=== PATIENT | female | born 1975 | race Two or more races ===

== ENCOUNTER → 2017-12-21 | Outpatient (REF) | payer MEDICAID ==
[2017-12-21 20:22] LABS: BASO # 0.1 10^3/uL (0.0-0.2); BASO % 0.7 % (0.0-1.0); EOS # 0.2 10^3/uL (0.0-0.50); EOS % 1.9 % (0.0-3.0); HEMATOCRIT 42.3 % (36.0-47.0); HEMOGLOBIN 14.1 g/dl (12.0-16.0); IMMATURE GRANULOCYTE % 0.2 % (0-0); LYMPH # 2.1 10^3/uL (1.5-4.5); MEAN CORPUSCULAR HEMOGLOBIN 27.9 pg (27.0-33.0); MEAN CORPUSCULAR HGB CONC 33.3 g/dl (32.0-36.5); MEAN CORPUSCULAR VOLUME 83.8 fl (80.0-96.0); MONO # 0.5 10^3/uL (0.0-0.8); MONO % 5.6 % (0.0-5.0); NEUTROPHILS # 5.9 10^3/uL (1.8-7.7); NEUTROPHILS % 67.6 % (36.0-66.0); PLATELET COUNT, AUTOMATED 490 10^3/uL (150-450); RED BLOOD COUNT 5.05 10^6/uL (4.00-5.40); RED CELL DISTRIBUTION WIDTH 12.8 % (11.5-14.5); WHITE BLOOD COUNT 8.7 10^3/uL (4.0-10.0)
[2017-12-21 20:35] LABS: ESTIMATED AVERAGE GLUCOSE 114 MG/DL (60-110); HEMOGLOBIN A1c 5.6 %
[2017-12-21 20:42] LABS: ALBUMIN 4.1 GM/DL (3.2-5.2); ALBUMIN/GLOBULIN RATIO 1.28 (1.00-1.93); ALKALINE PHOSPHATASE 79 U/L (45-117); ALT/SGPT 65 U/L (12-78); ANION GAP 10 MEQ/L (8-16); AST/SGOT 28 U/L (7-37); BILIRUBIN,TOTAL 0.6 MG/DL (0.2-1.0); BLOOD UREA NITROGEN 8 MG/DL (7-18); CALCIUM LEVEL 8.9 MG/DL (8.5-10.1); CARBON DIOXIDE LEVEL 23 MEQ/L (21-32); CHLORIDE LEVEL 109 MEQ/L (98-107); ERYTHROCYTE SEDIMENTATION RATE 6 mm/hr (0-20); GLOMERULAR FILTRATION RATE > 60.0 (>58); GLUCOSE, FASTING 108 MG/DL (70-100); SODIUM LEVEL 142 MEQ/L (136-145); TOTAL PROTEIN 7.3 GM/DL (6.4-8.2)
[2017-12-22 09:20] LABS: RUBELLA IgG QUALITATIVE IMMUNE (IMMUNE)
[2017-12-23 08:06] LABS: RUBEOLA IgG ANTIBODY 80.1 AU/mL (Immune >29.9)
[2017-12-23 08:06] LABS: MUMPS VIRUS IgG ANTIBODY 94.1 AU/mL (Immune >10.9)
== END ==
LOC: M LAB REF 19:43
DX: Z00.01 Encounter for general adult medical examination with abnormal findings (principal); Z68.30 Body mass index [BMI] 30.0-30.9, adult

== ENCOUNTER 2018-03-04 17:39 | Emergency (ER) | payer OTHER, MEDICAID ==
[2018-03-04] MEDS: ASPIRIN 81 MG CHEW TABLET PO (18:00)
[2018-03-04 18:04] LABS: BASO # 0.1 10^3/uL (0.0-0.2); BASO % 0.5 % (0.0-1.0); EOS # 0.3 10^3/uL (0.0-0.50); EOS % 2.9 % (0.0-3.0); HEMATOCRIT 40.1 % (36.0-47.0); HEMOGLOBIN 13.4 g/dl (12.0-15.5); IMMATURE GRANULOCYTE % 0.4 % (0-3.0); LYMPH # 3.8 10^3/uL (1.5-4.5); LYMPH % 33.8 % (24.0-44.0); MEAN CORPUSCULAR HEMOGLOBIN 27.7 pg (27.0-33.0); MEAN CORPUSCULAR HGB CONC 33.4 g/dl (32.0-36.5); MONO # 0.7 10^3/uL (0.0-0.8); MONO % 6.7 % (0.0-5.0); NEUTROPHILS # 6.2 10^3/uL (1.8-7.7); NEUTROPHILS % 55.7 % (36.0-66.0); PLATELET COUNT, AUTOMATED 500 10^3/uL (150-450); RED BLOOD COUNT 4.83 10^6/uL (4.00-5.40); RED CELL DISTRIBUTION WIDTH 12.8 % (11.5-14.5); WHITE BLOOD COUNT 11.1 10^3/uL (4.0-10.0)
[2018-03-04] MEDS: KETOROLAC 30 MG/ML VIAL (J1885) IV (18:07)
[2018-03-04] MEDS: ONDANSETRON 4MG/2ML VIAL (J2405) IV (18:07)
[2018-03-04 18:20] LABS: PARTIAL THROMBOPLASTIN TIME 23.1 SECONDS (26.8-37.9)
[2018-03-04] MEDS: MORPHINE 2 MG/ML 1ML SYRINGE (J2270) IV (18:40)
[2018-03-04 18:46] LABS: ALBUMIN 3.8 GM/DL (3.2-5.2); ALBUMIN/GLOBULIN RATIO 0.95 (1.00-1.93); ALKALINE PHOSPHATASE 77 U/L (45-117); ALT/SGPT 19 U/L (12-78); ANION GAP 10 MEQ/L (8-16); AST/SGOT 18 U/L (7-37); BILIRUBIN,DIRECT < 0.1 MG/DL (0.0-0.2); BILIRUBIN,TOTAL 0.3 MG/DL (0.2-1.0); BLOOD UREA NITROGEN 14 MG/DL (7-18); CALCIUM LEVEL 8.5 MG/DL (8.5-10.1); CARBON DIOXIDE LEVEL 24 MEQ/L (21-32); CHLORIDE LEVEL 107 MEQ/L (98-107); CPK CREATINE PHOSPHOKINASE 67 U/L (26-192); CREATININE FOR GFR 0.89 MG/DL (0.55-1.30); GLOMERULAR FILTRATION RATE > 60.0 (>58); GLUCOSE, FASTING 109 MG/DL (70-100); LIPASE 155 U/L (73-393); POTASSIUM SERUM 3.9 MEQ/L (3.5-5.1); SODIUM LEVEL 141 MEQ/L (136-145); TOTAL PROTEIN 7.8 GM/DL (6.4-8.2); TROPONIN I < 0.02 NG/ML (< 0.10)
[2018-03-04 18:47] LABS: CK-MB VALUE MASS < 1.0 NG/ML (<3.6); MB/CK RELATIVE INDEX 1.49 (< OR =4); NT-PRO BNP 35 PG/ML (<125)
[2018-03-04 18:49] LABS: CONTROL LINE HCG INT CTR LINE PRESENT; HCG, SERUM QUALITATIVE NEGATIVE (NEGATIVE)
[2018-03-04] MEDS ORDERED: ISOVUE-370 76% 100ML VIAL (Q9967) As Ordered (18:55)
[2018-03-04 20:02] LABS: APPEARANCE, URINE HAZY (CLEAR); BACTERIA, URINE AUTO NEGATIVE (NEGATIVE); BILIRUBIN, URINE AUTO NEGATIVE (NEGATIVE); BLOOD, URINE BLOOD 1+ (NEGATIVE); COLOR, URINE YELLOW (YELLOW); GLUCOSE, URINE (UA) AUTO NEGATIVE (NEGATIVE); KETONE, URINE AUTO NEGATIVE (NEGATIVE); LEUKOCYTE ESTERASE, URINE AUTO NEGATIVE (NEGATIVE); MUCUS, URINE SMALL (NEGATIVE); NITRITE, URINE AUTO NEGATIVE (NEGATIVE); PROTEIN, URINE AUTO 1+ mg/dL (NEGATIVE); RBC, URINE AUTO 10 /HPF (0-3); SQUAMOUS EPITHELIAL CELL UR AU 1 /HPF (0-6); UROBILINOGEN, URINE AUTO 0.2 mg/dL (0.0-2.0); WBC, URINE AUTO 1 /HPF (0-3)
[2018-03-04] MEDS: MORPHINE 4 MG/ML 1ML VIAL/SYRINGE (J2270) IV ×2 (20:02→20:29)
[2018-03-04 20:03] LABS: SPECIFIC GRAVITY URINE AUTO >1.060 (1.002-1.035)
[2018-03-04 20:25] LABS: CHLAMYDIA DNA AMPLIFICATION NEGATIVE (NEGATIVE); GC DNA AMPLIFICATION NEGATIVE (NEGATIVE)
[2018-03-04] MEDS: TAMSULOSIN 0.4 MG CAP PO (20:45)
[2018-03-04] MEDS: OXYCODONE/APAP 5MG/325MG(BULK FOR ED) 1 TABLET PO (22:15)
== END 2018-03-04 22:22 | disposition home or self-care (01) ==
LOC: M ED 17:39
DX: N23 Unspecified renal colic (principal); N20.1 Calculus of ureter
CPT/HCPCS: J2270

== ENCOUNTER → 2019-01-05 | Outpatient (REF) | payer OTHER ==
[~2019-01-05] MED LIST: FLOM0.4C39 PO; PERC5TAB12 PO; ZOFR4TAB14 PO
== END ==
LOC: M SFHCLERA 11:51
PROVIDERS: ATTEND Physician Assistant
DX: R50.9 Fever, unspecified (principal)

== ENCOUNTER 2020-04-26 11:28 | Inpatient (IN) | payer OTHER ==
[~2020-04-26] VITALS: Ht 162.6 cm; Wt 93.5 kg
[2020-04-26] MEDS ORDERED: IBUP200C27 PO (11:37)
[2020-04-26] MEDS ORDERED: LEVO0.1T PO (11:37)
[2020-04-26] MEDS ORDERED: NS 1,000 ML IV ONE (12:30)
[2020-04-26 12:31] LABS: BASO # 0.1 10^3/uL (0.0-0.2); BASO % 0.4 % (0.0-1.0); EOS # 0.2 10^3/uL (0.0-0.5); EOS % 0.9 % (0.0-3.0); HEMATOCRIT 40.6 % (36.0-47.0); HEMOGLOBIN 13.4 g/dl (12.0-15.5); LYMPH # 1.3 10^3/uL (1.5-5.0); LYMPH % 6.7 % (24.0-44.0); MEAN CORPUSCULAR HEMOGLOBIN 29.4 pg (27.0-33.0); MONO # 0.6 10^3/uL (0.0-0.8); MONO % 3.3 % (0.0-5.0); NEUTROPHILS % 88.1 % (36.0-66.0); PLATELET COUNT, AUTOMATED 370 10^3/uL (150-450); RED BLOOD COUNT 4.56 10^6/uL (4.00-5.40); WHITE BLOOD COUNT 19.3 10^3/uL (4.0-10.0)
[2020-04-26 12:42] LABS: INR 1.02; PROTHROMBIN TIME 13.1 SECONDS (11.8-14.0)
[2020-04-26 12:43] LABS: PARTIAL THROMBOPLASTIN TIME 22.9 SECONDS (25.0-38.4)
[2020-04-26] MEDS ORDERED: ISOVUE-370 76% 100ML VIAL As Ordered ONE ×3 (12:47→23:54)
[2020-04-26 13:05] LABS: ALBUMIN 3.5 GM/DL (3.2-5.2); ALT/SGPT 21 U/L (12-78); BILIRUBIN,DIRECT 0.1 MG/DL (0.0-0.2); BILIRUBIN,TOTAL 0.5 MG/DL (0.2-1.0); BLOOD UREA NITROGEN 15 MG/DL (7-18); CALCIUM LEVEL 8.7 MG/DL (8.5-10.1); CARBON DIOXIDE LEVEL 25 MEQ/L (21-32); CHLORIDE LEVEL 107 MEQ/L (98-107); CK-MB VALUE MASS < 1.0 NG/ML (<3.6); CPK CREATINE PHOSPHOKINASE 33 U/L (26-192); CREATININE FOR GFR 0.91 MG/DL (0.55-1.30); GLOMERULAR FILTRATION RATE > 60.0 (>58); GLUCOSE, FASTING 141 MG/DL (70-100); LIPASE 77 U/L (73-393); MB/CK RELATIVE INDEX 3.03 (< OR =4); POTASSIUM SERUM 5.3 MEQ/L (3.5-5.1); SODIUM LEVEL 136 MEQ/L (136-145); TOTAL PROTEIN 7.1 GM/DL (6.4-8.2); TROPONIN I < 0.02 NG/ML (< 0.10)
[2020-04-26] MEDS ORDERED: KETOROLAC 30 MG/ML 1ML VIAL IV ONE (13:15)
--- NOTE | 2020-04-26 14:23 | REP ---
CT ABDOMEN AND PELVIS WITH IV CONTRAST: TECHNIQUE: Axial contrast-enhanced images from the lung bases to the pubic symphysis using 100 mL Isovue-370 intravenous contrast material with multiplanar reformations. COMPARISON: 03/04/2018 The visualized lung bases demonstrate no infiltrate. The liver, spleen, adrenals, pancreas, and kidneys are unremarkable. Gallbladder is grossly unremarkable. There is no hydronephrosis. There is no abdominal aortic aneurysm. There is no adenopathy. There is no free air or free fluid. There is no bowel wall thickening. No pelvic mass is seen. There is a dominant follicle in the right ovary 2.1 cm in diameter. Urinary bladder is mildly distended and grossly unremarkable. IMPRESSION: No acute abnormalities detected in the abdomen or pelvis. Electronically Signed by Jack Subramanian MD 04/30/2020 06:34 P
[2020-04-26] MEDS ORDERED: MORPHINE 4 MG/ML 1ML VIAL/SYRINGE (J2270) IV ONE (15:15)
--- NOTE | 2020-04-26 16:00 | REP ---
MRI lumbar spine: 04/26/2020. Indication: Low back pain and leg numbness. Technique: Multiplanar short and long tier sequences of the lumbar spine were performed without IV Gadolinium. Comparison: None. Findings: Vertebral body alignment is within anatomic limits. Disc dessication and endplate degenerative sequelae are present at L4/L5. No worrisome marrow signal is present. The visualized cord is normal. No significant paraspinal soft tissue abnormalities are present. L1/L2, L2/L3 and L3/L4: Normal. L4/L5: Diffuse disc bulge is present. There is a tiny posterior central annular fissure. There is no significant spinal canal or neural foraminal narrowing. L5/S1: Normal. Impression: Degenerative sequelae at L4/L5 without significant spinal canal or neural foraminal narrowing as described. Electronically Signed by He Alberto DO 04/26/2020 03:51 P
--- NOTE | 2020-04-26 16:02 | ECGEPIP ---
[facility] - ED Test Date: 2020-04-26 Pat Name: MARCY SALDIVAR Department: Room: - Gender: Female Senior Clinical Data Analyst: : 1975 Requested By: ANASTASIA Donahue Order Number: [id number] Reading MD: Luis Enrique Lott Measurements Intervals Robertson Rate: 62 P: 55 NM: 125 QRS: 26 QRSD: 98 T: 44 QT: 438 QTc: 448 Interpretive Statements SINUS RHYTHM Nonspecific ST-T wave abnormalities Similar to tracing done 03-04-18 Electronically Signed on 04-26-2020 16:02:12 EDT by Luis Enrique Lott
[2020-04-26] MEDS ORDERED: NS 1,000 ML IV SCH (18:01)
--- NOTE | 2020-04-26 18:23 | HPEPDOC ---
[facility] Medical History & Physical Date of Admission Apr 26, 2020 Date of Service: Apr 26, 2020 Other Provider Unique Diaz Attending Physician: TYLER TEMPLE MD History and Physical TIME OF SERVICE: 7:50 PM CHIEF COMPLAINT: Back pain HISTORY OF PRESENT ILLNESS: This is a 44-year-old female who presented with complaints of 10 out of 10 back pain that occurred this morning at around 9 AM while bending over to clean. At the time she heard had a pop in her back and the pain radiated down to her left; thereafter she had difficulties walking on her own. She denies having similar pain in the past and denies falling. REVIEW OF SYSTEMS: 12 point review of systems negative except as listed in HPI PAST MEDICAL/ SURGICAL HISTORY: Supple facial surgeries after dog bite Nephrolithiasis Cholecystectomy Appendectomy SOCIAL HISTORY: She is a former smoker FAMILY HISTORY: Diabetes Hypertension Cancer ALLERGIES: Please see below. HOME MEDICATIONS: Please see below. PHYSICAL EXAMINATION: Vital Signs Date Time Temp Pulse Resp B/P (MAP) Pulse Ox O2 Delivery O2 Flow Rate FiO2 04/26/20 11:28 97.1 71 20 81/46 (58) 99 Room Air GEN: Obese/ NAD HEENT: NCAT /mucus membranes moist and pink CVS: RRR/NMRG/ radial pedis pulses intact LUNGS: lungs are clear to auscultation bilaterally on room air ABDOMEN: Contour ( obese) / soft & not tender with palpation MSK/EXTREMITIES: ROM intact in all 4 extremities except for left lower extremity where range of motion is limited by pain / negative REN test at the right / declined REN test at the left because of pain NEURO: CN 2-12 are grossly intact / speech is not dysarthric PSYCH: alert and oriented to person place and time/ able to understand and follow all commands LABORATORY DATA: Laboratory Tests 04/26/20 12:22 Immature Granulocyte % (Auto) 0.6, Neutrophils (%) (Auto) 88.1H, Lymphocytes (%) (Auto) 6.7L, Monocytes (%) (Auto) 3.3, Eosinophils (%) (Auto) 0.9, Basophils (%) (Auto) 0.4, Neutrophils # (Auto) 17.0H, Lymphocytes # (Auto) 1.3L, Monocytes # (Auto) 0.6, Eosinophils # (Auto) 0.2, Basophils # (Auto) 0.1, Nucleated Red Blood Cells % (auto) 0.0, Prothrombin Time 13.1, Prothromb Time International Ratio 1.02, Activated Partial Thromboplast Time 22.9L, Anion Gap 4L, Glomerular Filtration Rate > 60.0, Calcium Level 8.7, Total Bilirubin 0.5, Direct Bilirubin 0.1, Aspartate Amino Transf (AST/SGOT) 12, Alanine Aminotransferase (ALT/SGPT) 21, Alkaline Phosphatase 68, Total Creatine Kinase 33, Creatine Kinase MB < 1.0, Creatine Kinase MB Relative Index 3.03, Troponin I < 0.02, Total Protein 7.1, Albumin 3.5, Albumin/Globulin Ratio 1.0L, Lipase 77 04/26/20 12:31: POC Glucose (Misc Panel) 150H, POC Sodium (Misc Panel) 139, POC Potassium (Misc Panel) 5.0, POC Chloride (Misc Panel) 103, POC Total CO2 (Misc Panel) 24.0, POC Blood Urea Nitrogen (Misc Panel 16, POC Ionized Calcium (Misc Panel) 4.7, POC C reatinine (Misc Panel) 0.8, POC Hematocrit (Misc Panel) 40.0 04/26/20 12:35: POC Beta HCG, Quantitative < 5.0 IMAGING: CT abdomen and pelvis "IMPRESSION: No acute abnormalities detected in the abdomen or pelvis." MRI lumbar spine " Impression: Degenerative sequelae at L4/L5 without significant spinal canal or neural foraminal narrowing as described." MICROBIOLOGY: 04/26/20 Blood Culture, Received Pending ASSESSMENT: Ms. Long is a 44 year-old with a history of multiple surgeries was admitted for evaluation of back pain of unclear cause. PLAN: 1. Back pain of unclear cause. Imaging was unremarkable Plan: Admit to medical floor/Toradol for pain control/all precautions 2. Hypotension of unclear cause. Plan: IV fluids/follow-up blood culture and UA 3. Leukocytosis of unclear cause Plan: Monitor vitals / follow up repeat CBC 4. Obesity with BMI of 32.7 complicates care - f/u A1C DVT PROPHYLAXIS: Lovenox DISPOSITION: Likely home after more than 2 midnight's stay LATE ENTRY 1145 #Back pain 2/2 LLE DVT -Per d/w the patient's RN Jocelyne Salgado the patient's left leg appeared red swollen and warm. -We ordered IV clindamycin for possible cellulitis & a LLE US which showed " DVT extending from the common femoral vein to the popliteal vein. Minimal flow demonstrated at the level of the proximal femoral vein and popliteal vein indicating partial recanalization versus incomplete occlusion of the lumen. " -I went to re-evaluate the patient she denied having trauma to her leg, denied having chest pain or dyspnea. Her left leg was slightly darker than her right leg and more swollen up to the thighs. Plan: d/c lovenox & toradol / start Heparin drip/ order CTA to r/o PE / because the patient has a lot of leg pain and swelling and we do not have Vascular or IR coverage tonight I asked to assist me with transferring this patient to another hospital with Vascular or IR for urgent thrombolysis Home Medications Scheduled Ibuprofen (Ibuprofen) 200 Mg Capsule, 800 MG PO Q8H Levonorgestrel-Ethin Estradiol (Levonor-Eth Estrad 0.1-0.02 mg) 1 Each Tablet, 1 TAB PO DAILY Allergies Coded Allergies: No Known Allergies (Unverified , 04/26/20) TYLER TEMPLE MD Apr 26, 2020 18:23
[2020-04-26] MEDS: NS 1,000 ML IV SCH (18:30)
[2020-04-26] MEDS ORDERED: MAALOX 30 ML SUSP *UDC PO PRN (18:30)
[2020-04-26] MEDS ORDERED: MOM 30ML SUSPENSION UDC PO PRN (18:30)
[2020-04-26 19:45] VITALS: BP 131/72
[2020-04-26] MEDS ORDERED: KETOROLAC 30 MG/ML 1ML VIAL IV PRN (20:00)
[2020-04-26] MEDS ORDERED: ENOXAPARIN 40MG/0.4ML SYRINGE (J1650 PER 10MG) SC SCH (21:00)
[2020-04-26] MEDS: LIDOCAINE 5% (LIDODERM) PATCH TD SCH (22:05)
[2020-04-26] MEDS: CLINDAMYCIN 300 MG in IV 1 EA IV SCH (23:04)
--- NOTE | 2020-04-26 23:06 | REPVR ---
PROCEDURE INFORMATION: Exam: US Duplex Left Lower Extremity Veins, Limited Exam date and time: 04/26/2020 10:58 PM Age: 44 years old Clinical indication: Pain; Leg, lower; Left; Additional info: Left leg swelling TECHNIQUE: Imaging protocol: Real-time Duplex ultrasound of the Left Lower Extremity with 2-D hernandez scale, color Doppler flow and spectral waveform analysis with image documentation. Limited exam focused on the left lower extremity veins. COMPARISON: No relevant prior studies available. FINDINGS: Left deep veins: DVT extending from the common femoral vein to the popliteal vein. Minimal flow demonstrated at the level of the proximal femoral vein and popliteal vein indicating partial recanalization versus incomplete occlusion of the lumen. Left superficial veins: Unremarkable. Saphenofemoral junction is patent without thrombus. Soft tissues: Soft tissue edema in the lower leg. IMPRESSION: 1. DVT extending from the common femoral vein to the popliteal vein. 2. Soft tissue edema in the lower leg. Electronically signed by: Chay De On 04/26/2020 23:06:10 PM
[2020-04-26] MEDS ORDERED: HEPARIN SOD (PORCINE) 5000UNITS/ML VIAL (J1644 PER 1000UNITS) IV PRN (23:45)
[2020-04-26] MEDS ORDERED: HEPARIN SOD (PORCINE) 5000UNITS/ML VIAL (J1644 PER 1000UNITS) IV ONE (23:45)
[2020-04-27] VITALS: BP 140/77
[2020-04-27 00:11] LABS: BLOOD UREA NITROGEN 10 MG/DL (7-18); CARBON DIOXIDE LEVEL 24 MEQ/L (21-32); CHLORIDE LEVEL 109 MEQ/L (98-107); GLOMERULAR FILTRATION RATE > 60.0 (>58); GLUCOSE, FASTING 87 MG/DL (70-100); POTASSIUM SERUM 3.8 MEQ/L (3.5-5.1); SODIUM LEVEL 139 MEQ/L (136-145)
--- NOTE | 2020-04-27 00:26 | REPVR ---
PROCEDURE INFORMATION: Exam: CT Angiography Chest With Contrast Exam date and time: 04/26/2020 11:37 PM Age: 44 years old Clinical indication: Pain; Other: Back; Patient HX: Dvt; Additional info: Hypotension dvt in common femoral vein TECHNIQUE: Imaging protocol: Computed tomographic angiography of the chest with intravenous contrast. 3D rendering: MIP and/or 3D reconstructed images were created by the technologist. Radiation optimization: All CT scans at this facility use at least one of these dose optimization techniques: automated exposure control; mA and/or kV adjustment per patient size (includes targeted exams where dose is matched to clinical indication); or iterative reconstruction. Contrast material: ISO; Contrast volume: 75 ml; Contrast route: AC; COMPARISON: CT ANGIO CHEST 03/04/2018 7:01 PM FINDINGS: Pulmonary arteries: The main pulmonary artery measures 24 mm. No pulmonary embolism is identified. Aorta: The ascending thoracic aorta measures 30 mm. Lungs: Minimal bilateral lower lobe dependent atelectasis. Pleural space: Unremarkable. No pneumothorax. No pleural effusion. Heart: Unremarkable. No cardiomegaly. No pericardial effusion. Lymph nodes: Unremarkable. No enlarged lymph nodes. Bones/joints: Unremarkable. No acute fracture. Soft tissues: Unremarkable. IMPRESSION: Negative CTA chest with little change from 03/04/2018. No acute interval pulmonary embolism is identified. Electronically signed by: Justin Tam On 04/27/2020 00:25:51 AM
[2020-04-27] MEDS: HEPARIN DRIP 25,000 UNITS in IV 1 EA IV SCH ×2 (02:05→18:55)
[2020-04-27 04:00] VITALS: BP 122/83
[2020-04-27 05:38] LABS: HEMATOCRIT 34.2 % (36.0-47.0); MEAN CORPUSCULAR HEMOGLOBIN 29.3 pg (27.0-33.0); MEAN CORPUSCULAR HGB CONC 33.3 g/dl (32.0-36.5); MEAN CORPUSCULAR VOLUME 87.9 fl (80.0-96.0); RED BLOOD COUNT 3.89 10^6/uL (4.00-5.40); WHITE BLOOD COUNT 10.9 10^3/uL (4.0-10.0)
[2020-04-27 05:48] LABS: HEMOGLOBIN 11.4 g/dl (12.0-15.5); PLATELET COUNT, AUTOMATED 250 10^3/uL (150-450)
[2020-04-27 06:00] LABS: BLOOD UREA NITROGEN 9 MG/DL (7-18); CALCIUM LEVEL 7.6 MG/DL (8.5-10.1); CARBON DIOXIDE LEVEL 23 MEQ/L (21-32); CHLORIDE LEVEL 109 MEQ/L (98-107); CREATININE FOR GFR 0.56 MG/DL (0.55-1.30); GLOMERULAR FILTRATION RATE > 60.0 (>58); GLUCOSE, FASTING 78 MG/DL (70-100); POTASSIUM SERUM 3.6 MEQ/L (3.5-5.1); SODIUM LEVEL 138 MEQ/L (136-145)
[2020-04-27] MEDS: CLINDAMYCIN 300 MG in IV 1 EA IV SCH (06:04)
[2020-04-27] MEDS: NS 1,000 ML IV SCH ×3 (06:05→23:59)
[2020-04-27] MEDS: ACETAMINOPHEN TAB 650MG DOSE (2X325MG) PO PRN ×2 (07:48→20:42)
[2020-04-27 08:00] VITALS: BP 136/81
[2020-04-27] MEDS: MORPHINE 4 MG/ML 1ML VIAL/SYRINGE (J2270) IV PRN ×2 (09:44→16:32)
[2020-04-27] MEDS: **NOTE PATIENT COMMENT** MISC XX SCH (09:52)
[2020-04-27 12:00] VITALS: BP 124/75
--- NOTE | 2020-04-27 13:21 | IPNPDOC ---
Text Note Date of Service The patient was seen on 04/27/20. NOTE Subjective: -Sever pain in LLE, there is a mention of transfer to OSH for thrombolysis and being on waitlist but not sure to which institution and threshold suggestive of need for thrombolysis. I called Dr. Knapp who took a look at her imaging and recommended continuing anticoagulation with heparin gtt, elevation, pain management and to officially consult her if exam worsens. GEN: Obese/ NAD HEENT: NCAT /mucus membranes moist and pink CVS: RRR, no mrg LUNGS: CTAB ABDOMEN: Obese, normoactive bowel sounds, soft, NTND EXTREMITIES: ROM intact in all 4 extremities however with severe pain in LLE that is swollen and greater in diameter than R, warm otherwise has been ambulating to the bathroom NEURO: CN 2-12 are grossly intact, speech is not dysarthric PSYCH: AOx3 LABORATORY DATA: reviewed IMAGING: CT abdomen and pelvis "IMPRESSION: No acute abnormalities detected in the abdomen or pelvis." MRI lumbar spine " Impression: Degenerative sequelae at L4/L5 without significant spinal canal or neural foraminal narrowing as described." LL E US which showed " DVT extending from the common femoral vein to the popliteal vein. Minimal flow demonstrated at the level of the proximal femoral vein and popliteal vein indicating partial recanalization versus incomplete occlusion of the lumen. " CTA: negative for PE ASSESSMENT: Ms. Long is a 44 year-old with a history of multiple surgeries was admitted for evaluation of back pain now found to have extensive LLE DVT without evidence of a PE. PLAN: LLE DVT in the setting of oral control -heparin gtt for the next 24h and as pain improves and exam is stable, will switch to eliquis tomorrow. -Discussed her clot burden and exam with Dr. Knapp this morning who recommended continued anticoagulation and elevation after reviewing her imaging. She recommended officially consulting her if her exam worsens. Thus far pain is improving. -Elevate -DEBORAH -Likely 2/2 oral contraceptives that she began in the last 1 year. 2. Hypotension of unclear cause. -s/p IV fluids -was started on empiric clinda, discontinue without evidence of acute infection with CTA without GGOs or effusions or any evidence suggestive of PNA, bland UA, BCx NGTD, afebrile -monitor daily CBC -follow up BCx 3. Leukocytosis likely reactive to DVT -monitor 4. Obesity with BMI of 32.7 complicates care - f/u A1C DVT PROPHYLAXIS: on heparin gtt DISPOSITION: PCU VS,Nelsone, I+O VS, Fishbone, I+O Laboratory Tests 04/26/20 12:22 04/26/20 23:29 04/27/20 05:08 Vital Signs Date Time Temp Pulse Resp B/P (MAP) Pulse Ox O2 Delivery O2 Flow Rate FiO2 04/27/20 04:00 97.9 72 16 122/83 (96) 100 Room Air I&O- Last 24 Hours up to 6 AM 04/27/20 06:00 Intake Total 1750 ml Output Total 300 ml Balance 1450 ml PRIMITIVO CARDENAS MD Apr 27, 2020 09:20
[2020-04-27 16:00] VITALS: BP 130/75
[2020-04-27 20:00] VITALS: BP 127/76
[2020-04-27] MEDS: LIDOCAINE 5% (LIDODERM) PATCH TD SCH (20:42)
[2020-04-28] VITALS: BP 121/65
[2020-04-28 04:00] VITALS: BP 117/67
[2020-04-28 07:44] VITALS: BP 128/76
[2020-04-28] MEDS: **NOTE PATIENT COMMENT** MISC XX SCH (08:47)
[2020-04-28] MEDS: MORPHINE 4 MG/ML 1ML VIAL/SYRINGE (J2270) IV PRN ×2 (09:14)
[2020-04-28] MEDS: NS 1,000 ML IV SCH (10:06)
[2020-04-28] MEDS: APIXABAN 5 MG TAB (ELIQUIS) PO SCH ×2 (11:06→20:55)
--- NOTE | 2020-04-28 11:37 | IPNPDOC ---
Text Note Date of Service The patient was seen on 04/28/20. NOTE Subjective: -Pain much improved this AM GEN: Obese/ NAD HEENT: NCAT /mucus membranes moist and pink CVS: RRR, no mrg LUNGS: CTAB ABDOMEN: Obese, normoactive bowel sounds, soft, NTND EXTREMITIES: ROM intact in all 4 extremities, LLE that is swollen and greater in diameter than R, warm otherwise ans has been ambulating NEURO: CN 2-12 are grossly intact, speech is not dysarthric PSYCH: AOx3 LABORATORY DATA: reviewed IMAGING: CT abdomen and pelvis "IMPRESSION: No acute abnormalities detected in the abdomen or pelvis." MRI lumbar spine " Impression: Degenerative sequelae at L4/L5 without significant spinal canal or neural foraminal narrowing as described." LL E US which showed " DVT extending from the common femoral vein to the popliteal vein. Minimal flow demonstrated at the level of the proximal femoral vein and popliteal vein indicating partial recanalization versus incomplete occl usion of the lumen. " CTA: negative for PE ASSESSMENT: Ms. Long is a 44 year-old with a history of multiple surgeries was admitted for evaluation of back pain now found to have extensive LLE DVT without evidence of a PE. PLAN: LLE DVT in the setting of oral control -switch to eliquis 10 BID for 7d, then 5 BID for at least 3m -Discussed her clot burden and exam with Dr. Knapp 6 AM who recommended continued anticoagulation and elevation after reviewing her imaging. She recommended officially consulting her if her exam worsens. Thus far pain continues to improve -Elevate leg -DEBORAH -Likely 2/2 oral contraceptives that she began in the last 1 year. Stop OCPs -Switch pain meds from morphine IV PRN to percocet 1Q4P 2. Hypotension of unclear cause. -s/p IV fluids -was started on empiric clinda, discontinued 04/27 AM without evidence of acute infection with CTA without GGOs or effusions or any evidence suggestive of PNA, bland UA, BCx NGTD, afebrile -monitor daily CBC -follow up BCx 3. Leukocytosis likely reactive to DVT: resolved -monitor 4. Obesity with BMI of 32.7 complicates care DVT PROPHYLAXIS: eliquis DISPOSITION: PCU downgrade to medsurg VS,Fishbone, I+O VS, Fishbone, I+O Vital Signs Date Time Temp Pulse Resp B/P (MAP) Pulse Ox O2 Delivery O2 Flow Rate FiO2 04/28/20 09:14 18 Room Air 04/28/20 07:44 97.8 81 128/76 (93) 98 I&O- Last 24 Hours up to 6 AM 04/28/20 05:59 Intake Total 1940 ml Output Total 1600 ml Balance 340 ml PRIMITIVO CARDENAS MD Apr 28, 2020 09:59
[2020-04-28] MEDS ORDERED: SLF 3 ML SYR IV PRN (12:00)
[2020-04-28] MEDS: SLF 3 ML SYR IV SCH ×2 (14:00→20:56)
[2020-04-28 15:56] VITALS: BP 140/76
[2020-04-28] MEDS: PERCOCET 5MG/325MG TAB PO PRN ×2 (16:05→20:56)
[2020-04-28 20:00] VITALS: BP 136/74
[2020-04-28] MEDS: LIDOCAINE 5% (LIDODERM) PATCH TD SCH (20:55)
[2020-04-29] VITALS: BP 121/73
[2020-04-29] MEDS: ACETAMINOPHEN TAB 650MG DOSE (2X325MG) PO PRN ×2 (00:08→08:17)
[2020-04-29] MEDS: PERCOCET 5MG/325MG TAB PO PRN ×4 (00:53→14:27)
[2020-04-29 04:00] VITALS: BP 126/76
[2020-04-29] MEDS: SLF 3 ML SYR IV SCH ×2 (05:14→13:37)
[2020-04-29 08:00] VITALS: BP 121/69
[2020-04-29] MEDS: APIXABAN 5 MG TAB (ELIQUIS) PO SCH (08:17)
[2020-04-29] MEDS: **NOTE PATIENT COMMENT** MISC XX SCH (09:00)
[2020-04-29] MEDS ORDERED: SENNA 8.6 MG TAB (SENOKOT) PO SCH (09:00)
[2020-04-29] MEDS ORDERED: ELIQ5TAB PO (09:14)
[2020-04-29] MEDS ORDERED: PERCOCET PO (09:14)
[2020-04-29] MEDS ORDERED: SENN-52 PO (09:16)
[2020-04-29 09:30] LABS: BLOOD UREA NITROGEN 5 MG/DL (7-18); CALCIUM LEVEL 8.1 MG/DL (8.5-10.1); CARBON DIOXIDE LEVEL 25 MEQ/L (21-32); CHLORIDE LEVEL 111 MEQ/L (98-107); GLOMERULAR FILTRATION RATE > 60.0 (>58); GLUCOSE, FASTING 86 MG/DL (70-100); SODIUM LEVEL 143 MEQ/L (136-145)
[2020-04-29 09:31] LABS: HEMATOCRIT 37.8 % (36.0-47.0); HEMOGLOBIN 12.3 g/dl (12.0-15.5); MEAN CORPUSCULAR HEMOGLOBIN 28.9 pg (27.0-33.0); MEAN CORPUSCULAR HGB CONC 32.5 g/dl (32.0-36.5); MEAN CORPUSCULAR VOLUME 88.9 fl (80.0-96.0); PLATELET COUNT, AUTOMATED 318 10^3/uL (150-450); RED BLOOD COUNT 4.25 10^6/uL (4.00-5.40); WHITE BLOOD COUNT 11.3 10^3/uL (4.0-10.0)
[2020-04-29 12:00] VITALS: BP 127/68
--- NOTE | 2020-04-29 16:05 | DS.PDOC ---
Discharge Summary General Date of Admission Apr 26, 2020 at 18:20 Date of Discharge 04/29/2020 Attending Physician: PRIMITIVO CARDENAS MD Discharge Summary PROCEDURES PERFORMED DURING STAY: None. ADMITTING DIAGNOSES: 1. back pain DISCHARGE DIAGNOSES: 1. LLE DVT 2. History of Nephrolithiasis, Cholecystectomy and Appendectomy with otherwise no other chronic conditions COMPLICATIONS/CHIEF COMPLAINT: Back Pain. HISTORY OF PRESENT ILLNESS: 44-year-old W who presented with complaints of 10 out of 10 back pain that began on the morning of presentation while bending over to clean. At the time she heard had a pop in her back and the pain radiated down to her left; thereafter she had difficulties walking on her own. She denies having similar pain in the past and denies falling. HOSPITAL COURSE: In the ED, on initial evaluation she had a CT A/P that was grossly unremarkable, an MRI of her L spine that was grossly without acute pathology with degenerative sequelae at L4/L5 without significant spinal canal or neural foraminal narrowing, and was given empiric antibiotics for a leukocytosis to 19.3. While she was in the ED, she developed LLE pain and had noted swelling and was found to have extensive LLE DVT on LE doppler US without evidence of a PE on CTA. She was started on a heparin gtt and on finally speaking with Dr. Knapp (vascular surgery), who examined her imaging and clot burden, she recommended continuation of anticoagulation without jayce evidence for thrombectomy or IVC filter. We both suspected that this was likely precipitated by the OCPs she started taking within the last 1 year. She was transitioned to eliquis and will be discharge home on eliquis with close PCP follow up for hypercoagulable workup after 6 weeks when it is of highest yield instead of in the setting of an acute thombotic event. She was evaluated by PT and deemed safe for home discharge with a rollator walker until her LLE swelling and pain improve with return to normal gait. DISCHARGE MEDICATIONS: Please see below. ALLERGIES: Please see below. PHYSICAL EXAMINATION ON DISCHARGE: VITAL SIGNS: Please see below. GEN: Obese, NAD HEENT: NCAT /mucus membranes moist and pink CVS: RRR, no mrg LUNGS: CTAB ABDOMEN: Obese, normoactive bowel sounds, soft, NTND EXTREMITIES: ROM intact in all 4 extremities, LLE remains swollen and greater in diameter than R, however with some mild improvement, skin is not tight any longer, 2+ DP pulses, warm otherwise, ambulating cautiously using a walker. NEURO: CN 2-12 are grossly intact, speech is not dysarthric PSYCH: AOx3 LABORATORY DATA: Please see below. IMAGING: CT abdomen and pelvis "IMPRESSION: No acute abnormalities detected in the abdomen or pelvis." MRI lumbar spine " Impression: Degenerative sequelae at L4/L5 without significant spinal canal or neural foraminal narrowing as described." L-spine MRI: Degenerative sequelae at L4/L5 without significant spinal canal or neural foraminal narrowing as described. LE doppler US: 1. DVT extending from the common femoral vein to the popliteal vein. 2. Soft tissue edema in the lower leg. CTA chest: Pulmonary arteries: The main pulmonary artery measures 24 mm. No pulmonary embolism is identified. Aorta: The ascending thoracic aorta measures 30 mm. Lungs: Minimal bilateral lower lobe dependent atelectasis. Pleural space: Unremarkable. No pneumothorax. No pleural effusion. Heart: Unremarkable. No cardiomegaly. No pericardial effusion. Lymph nodes: Unremarkable. No enlarged lymph nodes. Bones/joints: Unremarkable. No acute fracture. Soft tissues: Unremarkable. IMPRESSION: Negative CTA chest with little change from 03/04/2018. No acute interval pulmonary embolism is identified. PROGNOSIS: Good ACTIVITY: As tolerated DIET: regular DISCHARGE PLAN: Home with eliquis, close PCP follow up, rollator walker until gait orthodox and swelling improves, letter for 7d off work. DISPOSITION: Home DISCHARGE INSTRUCTIONS: 1. Home with eliquis, close PCP follow up, rollator walker until gait orthodox and swelling improves, letter for 7d off work. Eliquis 10 BID for 5d and then 5BID thereafter. Stop oral contraception pills. ITEMS TO FOLLOWUP ON ON OUTPATIENT: 1. DVT DISCHARGE CONDITION: Stable TIME SPENT ON DISCHARGE: 34 minutes. Vital Signs/I&Os Vital Signs Date Time Temp Pulse Resp B/P (MAP) Pulse Ox O2 Delivery O2 Flow Rate FiO2 04/29/20 12:00 98.3 72 17 127/68 (87) 98 Room Air I&O- Last 24 Hours up to 6 AM 04/29/20 06:00 Intake Total 528 ml Output Total 2550 ml Balance -2022 ml Laboratory Data Labs 24H Laboratory Tests 2 04/29/20 05:50: Nucleated Red Blood Cells % (auto) 0.0, Anion Gap 7L, Glomerular Filtration Rate > 60.0, Calcium Level 8.1L 04/29/20 05:53: Activated Partial Thromboplast Time 28.5 CBC/BMP Laboratory Tests 04/29/20 05:50 Microbiology Microbiology 04/26/20 Blood Culture - Preliminary, Resulted No Growth after 48 hours. All Specime... 04/26/20 Blood Culture - Preliminary, Resulted No Growth after 48 hours. All Specime... Discharge Medications Scheduled Apixaban (Eliquis) 5 Mg Tablet, 10 MG PO BID 10mg twice daily for 6 more days. Then begin 5mg twice daily Ibuprofen (Ibuprofen) 200 Mg Capsule, 800 MG PO Q8H, (Reported) Sennosides/Docusate Sodium (Senna Plus Tablet) 1 Each Tablet, 1 TAB PO BID Scheduled PRN Oxycodone/Acetaminophen (Oxycodone-Acetaminophen 5-325) 1 Each Tablet, 1 TAB PO Q4HP PRN for MILD/MODERATE PAIN (PS 1-7) Allergies Coded Allergies: No Known Allergies (Unverified , 04/26/20) PRIMITIVO CARDENAS MD Apr 29, 2020 14:18
== END 2020-04-29 15:10 | disposition home or self-care (01) | DRG 197 ==
LOC: M ED 11:28 → M ED INP 18:20 → ENRESERV 18:40 → M PCU 19:42
PROVIDERS: ADMIT Internal Medicine; ATTEND Internal Medicine
DX: I82.412 Acute embolism and thrombosis of left femoral vein (principal); I82.432 Acute embolism and thrombosis of left popliteal vein; I95.9 Hypotension, unspecified; D72.829 Elevated white blood cell count, unspecified; E66.9 Obesity, unspecified; Z68.32 Body mass index [BMI] 32.0-32.9, adult; Z87.891 Personal history of nicotine dependence; Z79.899 Other long term (current) drug therapy

== ENCOUNTER → 2020-07-15 | Outpatient (CLI) | payer OTHER ==
[~2020-07-15] MED LIST changes: +ELIQ5TAB PO; +IBUP200C27 PO; +LEVO0.1T PO; +PERCOCET PO; +SENN-52 PO
--- NOTE | 2020-08-12 09:48 | REP ---
BILATERAL LOWER EXTREMITY DOPPLER ULTRASOUND: CLINICAL: Venous insufficiency with history of deep venous thrombosis. TECHNIQUE: Real time, hernandez scale and color evaluation using linear high frequency transducer. COMPARISON: 04/26/20 FINDINGS: The right lower extremity is normal and without evidence for deep venous thrombosis. The left lower extremity now demonstrates chronic partial thrombus from the common femoral vein to the popliteal vein with decreased compressibility but good color flow. Findings are improved when compared to prior examination. IMPRESSION: Partial resolution to the previously noted left common femoral to popliteal vein thrombus. MTDD
== END ==
LOC: M RAD 13:46
PROVIDERS: ATTEND Physician Assistant
DX: I87.2 Venous insufficiency (chronic) (peripheral) (principal); I82.512 Chronic embolism and thrombosis of left femoral vein; I82.532 Chronic embolism and thrombosis of left popliteal vein

== ENCOUNTER → 2020-08-06 | Outpatient (CLI) | payer OTHER ==
[2020-08-06 12:41] LABS: PTT LUPUS TYPE ANTICOAG SCREEN 0.9 (0-1.2)
[2020-08-09 12:08] LABS: ANTI THROMBIN 3 ANTIGEN IMMUNO 97 % (72-124); PROTEIN C FUNCTIONAL ACTIVITY 132 % (73-180); PROTEIN S FUNCTIONAL ACTIVITY 71 % (63-140)
[2020-08-12 18:10] LABS: ANTINUCLEAR ANTIBODIES DIRECT Negative (Negative)
== END ==
LOC: M LAB 10:42
PROVIDERS: ATTEND Physician Assistant
DX: I87.2 Venous insufficiency (chronic) (peripheral) (principal); Z86.718 Personal history of other venous thrombosis and embolism

== ENCOUNTER → 2020-11-11 | Outpatient (CLI) | payer OTHER ==
[~2020-11-11] MED LIST changes: +CYCL-707 PO; +DOXY-350 PO; +ISOVUE-370 76% 100ML VIAL As Ordered ONE; +NEUR300C PO
--- NOTE | 2020-11-12 08:09 | REP ---
INDICATION: DVT/PE COMPARISON: 04/27/2020 TECHNIQUE: Axial contrast enhanced images from the thoracic inlet to the upper abdomen using pulmonary embolus technique with multiplanar re-formations. 75 ml Isovue 370 intravenous contrast material administered without complication. This CT examination was performed using the following dose reduction techniques: Automated exposure control, adjustment of mA and/or kv according to the patient's size, and use of iterative reconstruction technique. FINDINGS: Satisfactory enhancement of the pulmonary vasculature is achieved and no filling defects are identified to suggest pulmonary embolus. Further evaluation of the mediastinum demonstrates normal thoracic aorta, heart and pericardium. The bilateral lung patrick are well aerated and clear without consolidation pleural effusion or pneumothorax. Tracheobronchial tree is patent. No nodule or mass lesion is identified. No adenopathy noted. Surrounding musculoskeletal structures intact IMPRESSION: No evidence for pulmonary embolus. No acute mediastinal or pleural parenchymal process. <Electronically signed by Tao Kaiser > 11/12/20 0224
== END ==
LOC: M RAD 17:51
PROVIDERS: ATTEND Internal Medicine Hematology & Oncology
DX: R07.9 Chest pain, unspecified (principal); Z86.718 Personal history of other venous thrombosis and embolism
CPT/HCPCS: 71275; Q9967

== ENCOUNTER → 2020-11-20 | Outpatient (CLI) | payer OTHER ==
[~2020-11-20] MED LIST changes: +DOXY100T27 PO; -ISOVUE-370 76% 100ML VIAL As Ordered ONE
--- NOTE | 2020-11-20 08:47 | REP ---
INDICATION: LEFT LEG DVT? PAIN COMPARISON: None. TECHNIQUE: Subramanian scale and color Doppler evaluation left lower extremity using linear high frequency transducer. FINDINGS: Ultrasound examination of the left lower extremity deep venous structures from the common femoral vein to the popliteal vein demonstrates normal compressibility flow and wave patterns in response to respiration and augmentation. There is no evidence for deep venous thrombosis. IMPRESSION: No evidence for deep venous thrombosis. <Electronically signed by Tao Kaiser > 11/20/20 0897
== END ==
LOC: M RAD 07:34
PROVIDERS: ATTEND Internal Medicine Hematology & Oncology
DX: M79.605 Pain in left leg (principal)

== ENCOUNTER → 2021-04-02 | Outpatient (CLI) | payer OTHER ==
[2021-04-02 13:03] LABS: PLATELET COUNT, AUTOMATED 387 10^3/uL (150-450); URINE PREG TEST NEGATIVE (NEGATIVE)
[2021-04-02 13:13] LABS: INR 0.95; PARTIAL THROMBOPLASTIN TIME 28.1 SECONDS (24.2-38.5); PROTHROMBIN TIME 12.9 SECONDS (12.5-14.3)
== END ==
LOC: M PLALAB 10:07
PROVIDERS: ATTEND Physical Medicine & Rehabilitation
DX: M51.36 Other intervertebral disc degeneration, lumbar region (principal)

== ENCOUNTER → 2021-07-07 | Outpatient (CLI) | payer OTHER ==
--- NOTE | 2021-07-08 10:30 | REPVR ---
PROCEDURE INFORMATION: Exam: MR Lumbar Spine Without Contrast Exam date and time: 07/07/2021 3:50 PM Age: 45 years old Clinical indication: Low back pain; Disc degeneration TECHNIQUE: Imaging protocol: Multiplanar magnetic resonance images of the lumbar spine without intravenous contrast. COMPARISON: MRI-Spine, L.S. without con 04/26/2020 2:29 PM FINDINGS: Vertebrae: Unremarkable. Spinal cord: Normal signal. No cord compression. L1-L2: No significant disc disease. No significant spinal canal stenosis. No neural foraminal stenosis. L2-L3: No significant disc disease. No significant spinal canal stenosis. No neural foraminal stenosis. L3-L4: No significant disc disease. No significant spinal canal stenosis. No neural foraminal stenosis. L4-L5: There is disc space narrowing and desiccation. There are moderate degenerative end plate changes at this level. Disc bulging extends into both neural foramen causing mild bilateral neural foraminal narrowing, right worse than left. There is a posterior annular tear. There is facet arthropathy and ligamentum flavum hypertrophy. There is mild spinal canal stenosis. L5-S1: There is mild disc bulging. Disc bulging extends into both neural foramen causing mild bilateral neural foraminal narrowing. Soft tissues: Unremarkable. Reproductive: There is a 3.5 cm complex left adnexal cyst. IMPRESSION: 1. Moderate degenerative disc changes at L4/5, similar to prior study. Please see details above. 2. There is a 3.5 cm complex left adnexal cyst. Followup pelvic ultrasound is recommended. Electronically signed by: Damaso Salmeron On 07/08/2021 10:30:07 AM
== END ==
LOC: M PLAIMG 15:05
PROVIDERS: ATTEND Physician Assistant
DX: M51.36 Other intervertebral disc degeneration, lumbar region (principal); M51.27 Other intervertebral disc displacement, lumbosacral region; M51.26 Other intervertebral disc displacement, lumbar region

== ENCOUNTER → 2021-09-23 | Outpatient (CLI) | payer OTHER ==
[~2021-09-23] MED LIST changes: +PROHANCE 279.3MG/ML 15ML VIAL As Ordered ONE; +PROHANCE 279.3MG/ML 5ML VIAL As Ordered ONE
[2021-09-23 10:34] LABS: BASO # 0.1 10^3/uL (0.0-0.2); BASO % 0.7 % (0.0-1.0); EOS # 0.2 10^3/uL (0.0-0.5); EOS % 1.5 % (0.0-3.0); HEMATOCRIT 41.4 % (36.0-47.0); HEMOGLOBIN 13.6 g/dl (12.0-15.5); LYMPH # 1.6 10^3/uL (1.5-5.0); LYMPH % 13.3 % (24.0-44.0); MEAN CORPUSCULAR HEMOGLOBIN 28.7 pg (27.0-33.0); MEAN CORPUSCULAR HGB CONC 32.9 g/dl (32.0-36.5); MEAN CORPUSCULAR VOLUME 87.3 fl (80.0-96.0); MONO # 0.8 10^3/uL (0.0-0.8); NEUTROPHILS # 9.1 10^3/uL (1.5-8.5); NEUTROPHILS % 77.2 % (36.0-66.0); PLATELET COUNT, AUTOMATED 432 10^3/uL (150-450); RED BLOOD COUNT 4.74 10^6/uL (4.00-5.40); WHITE BLOOD COUNT 11.9 10^3/uL (4.0-10.0)
[2021-09-23 11:38] LABS: ERYTHROCYTE SEDIMENTATION RATE 18 mm/hr (0-20)
[2021-09-23 13:35] LABS: RHEUMATOID FACTOR QUANT < 10.0 IU/ML (<15.0)
--- NOTE | 2021-09-23 13:48 | REPVR ---
PROCEDURE INFORMATION: Exam: MR Lumbar Spine Without and With Contrast Exam date and time: 09/23/2021 11:16 AM Age: 46 years old Clinical indication: Low back pain; Additional info: Disc degener comp to 07/07/21 R/O internal deran-labs first TECHNIQUE: Imaging protocol: Multiplanar magnetic resonance images of the lumbar spine without and with intravenous contrast. Contrast material: PROHANCE; Contrast volume: 18 ml; Contrast route: INTRAVENOUS (IV); COMPARISON: MRI-Spine, L.S. without con 07/07/2021 3:19 PM FINDINGS: Vertebrae: There is no fracture or listhesis. Aside from endplate changes at L4, marrow signal is within normal limits. Spinal cord: Normal signal. No cord compression. L1-L2: No significant disc disease. No significant spinal canal stenosis. No neural foraminal stenosis. L2-L3: No significant disc disease. No significant spinal canal stenosis. No neural foraminal stenosis. L3-L4: No significant disc disease. No significant spinal canal stenosis. No neural foraminal stenosis. L4-L5: There is shallow disc bulging. There is moderate facet hypertrophy. There is mild right neural foraminal narrowing. L5-S1: There is shallow disc bulging. There is mild facet hypertrophy. There is mild left neural foraminal narrowing. Soft tissues: Unremarkable. IMPRESSION: Degenerative disc disease and spondylosis as described, most pronounced at L4/5, where they contribute to mild right neural foraminal narrowing. Appearance is essentially unchanged as compared to preceding examination. Electronically signed by: Jannie Fagan On 09/23/2021 13:47:42 PM
== END ==
LOC: M RAD 09:55
PROVIDERS: ATTEND Physician Assistant
DX: M51.36 Other intervertebral disc degeneration, lumbar region (principal); M51.26 Other intervertebral disc displacement, lumbar region; M47.816 Spondylosis without myelopathy or radiculopathy, lumbar region
CPT/HCPCS: 36415; 72158; 81374; 85025; 85652; 86038; 86140; 86431; 86617; A9576

== ENCOUNTER → 2022-03-12 | Outpatient (CLI) | payer OTHER ==
[~2022-03-12] MED LIST changes: -PROHANCE 279.3MG/ML 15ML VIAL As Ordered ONE; -PROHANCE 279.3MG/ML 5ML VIAL As Ordered ONE
== END ==
LOC: M RAD 14:23
PROVIDERS: ATTEND Family Medicine Addiction Medicine
DX: I82.402 Acute embolism and thrombosis of unspecified deep veins of left lower extremity (principal)

== ENCOUNTER → 2022-04-24 | Outpatient (CLI) | payer OTHER | LOC: M SOG 07:51 | PROVIDERS: ATTEND Orthopaedic Surgery | DX: Z47.89 Encounter for other orthopedic aftercare (principal) ==

== ENCOUNTER → 2022-04-30 | Outpatient (CLI) | payer OTHER | LOC: M WHC 08:05 | PROVIDERS: ATTEND Specialist | DX: Z12.31 Encounter for screening mammogram for malignant neoplasm of breast (principal); N83.202 Unspecified ovarian cyst, left side; Z80.3 Family history of malignant neoplasm of breast; Z80.0 Family history of malignant neoplasm of digestive organs; R93.89 Abnormal findings on diagnostic imaging of other specified body structures ==

== ENCOUNTER → 2022-05-21 | Outpatient (REF) | payer OTHER ==
[2022-05-21 20:17] LABS: BASO # 0.1 10^3/uL (0.0-0.2); BASO % 0.7 % (0.0-1.0); EOS # 0.4 10^3/uL (0.0-0.5); EOS % 3.4 % (0.0-3.0); HEMATOCRIT 44.3 % (36.0-47.0); HEMOGLOBIN 13.8 g/dl (12.0-15.5); LYMPH % 24.3 % (24.0-44.0); MEAN CORPUSCULAR HEMOGLOBIN 27.5 pg (27.0-33.0); MEAN CORPUSCULAR HGB CONC 31.2 g/dl (32.0-36.5); MEAN CORPUSCULAR VOLUME 88.4 fl (80.0-96.0); MONO # 0.7 10^3/uL (0.0-0.8); MONO % 5.8 % (2.0-8.0); NEUTROPHILS % 65.3 % (36.0-66.0); PLATELET COUNT, AUTOMATED 432 10^3/uL (150-450); RED BLOOD COUNT 5.01 10^6/uL (4.00-5.40); WHITE BLOOD COUNT 12.2 10^3/uL (4.0-10.0)
[2022-05-21 20:19] LABS: ALBUMIN 4.2 GM/DL (3.2-5.2); ALT/SGPT 20 U/L (12-78); BILIRUBIN,TOTAL 0.6 MG/DL (0.2-1.0); BLOOD UREA NITROGEN 12 MG/DL (7-18); CALCIUM LEVEL 9.2 MG/DL (8.5-10.1); CARBON DIOXIDE LEVEL 28 MEQ/L (21-32); CHLORIDE LEVEL 106 MEQ/L (98-107); CREATININE FOR GFR 0.72 MG/DL (0.55-1.30); GLOMERULAR FILTRATION RATE > 60.0 (>58); GLUCOSE, FASTING 86 MG/DL (70-100); POTASSIUM SERUM 4.6 MEQ/L (3.5-5.1); SODIUM LEVEL 137 MEQ/L (136-145); TOTAL PROTEIN 7.2 GM/DL (6.4-8.2)
[2022-05-21 20:37] LABS: VITAMIN B12 LEVEL 561 PG/ML
[2022-05-25 13:08] LABS: FOLATE 3.2 NG/ML
== END ==
LOC: M SFHCADAM 15:11
PROVIDERS: ATTEND Physician Assistant
DX: I82.502 Chronic embolism and thrombosis of unspecified deep veins of left lower extremity (principal); R19.4 Change in bowel habit; R19.7 Diarrhea, unspecified; M54.10 Radiculopathy, site unspecified; E78.5 Hyperlipidemia, unspecified; R25.2 Cramp and spasm

== ENCOUNTER → 2022-05-26 | Outpatient (REF) | payer OTHER | LOC: M SFHCADAM 12:28 | PROVIDERS: ATTEND Physician Assistant | DX: R19.7 Diarrhea, unspecified (principal) ==

== ENCOUNTER → 2022-06-09 | Outpatient (CLI) | payer OTHER ==
[~2022-06-09] MED LIST changes: +ISOVUE-370 76% 100ML VIAL As Ordered ONE
== END ==
LOC: M RAD 08:13
PROVIDERS: ATTEND Surgery
DX: I87.1 Compression of vein (principal)
CPT/HCPCS: 74174; Q9967

== ENCOUNTER → 2022-06-22 | Outpatient (CLI) | payer OTHER ==
[~2022-06-22] MED LIST changes: -ISOVUE-370 76% 100ML VIAL As Ordered ONE
[2022-06-22 22:37] LABS: FOLLICLE STIMULATING HORMONE 17.7 mIU/mL; FREE T4 1.14 NG/DL (0.76-1.46); LUTEINIZING HORMONE 31.4 mIU/mL; PROGESTERONE 0.59 NG/ML; PROLACTIN 11.3 NG/ML; THYROID STIMULATING HORMONE 4.68 uIU/ML (0.358-3.740)
== END ==
LOC: M PLALAB 12:20
PROVIDERS: ATTEND Specialist
DX: N92.6 Irregular menstruation, unspecified (principal)

== ENCOUNTER 2022-08-03 12:44 | Emergency (ER) | payer OTHER ==
[~2022-08-03] VITALS: Ht 162.6 cm; Wt 91.8 kg
[2022-08-03 13:25] LABS: BASO # 0.1 10^3/uL (0.0-0.2); BASO % 0.6 % (0.0-1.0); EOS # 0.5 10^3/uL (0.0-0.5); HEMATOCRIT 41.2 % (36.0-47.0); HEMOGLOBIN 13.6 g/dl (12.0-15.5); LYMPH # 2.6 10^3/uL (1.5-5.0); LYMPH % 24.6 % (24.0-44.0); MEAN CORPUSCULAR HEMOGLOBIN 28.2 pg (27.0-33.0); MEAN CORPUSCULAR VOLUME 85.5 fl (80.0-96.0); MONO # 0.6 10^3/uL (0.0-0.8); MONO % 5.9 % (2.0-8.0); NEUTROPHILS # 6.8 10^3/uL (1.5-8.5); NEUTROPHILS % 63.6 % (36.0-66.0); PLATELET COUNT, AUTOMATED 397 10^3/uL (150-450); RED BLOOD COUNT 4.82 10^6/uL (4.00-5.40); WHITE BLOOD COUNT 10.6 10^3/uL (4.0-10.0)
[2022-08-03 13:35] LABS: INR 0.9; PROTHROMBIN TIME 12.6 SECONDS (12.7-14.5)
[2022-08-03] MEDS ORDERED: ONDANSETRON 4MG 2ML VIAL IV ONE (13:35)
[2022-08-03] MEDS ORDERED: MORPHINE 4 MG/ML 1ML VIAL/SYRINGE IV ONE (13:35)
[2022-08-03 13:58] LABS: ALBUMIN 3.5 GM/DL (3.2-5.2); BILIRUBIN,DIRECT 0.1 MG/DL (0.0-0.2); BILIRUBIN,TOTAL 0.3 MG/DL (0.2-1.0); TOTAL PROTEIN 7.1 GM/DL (6.4-8.2)
[2022-08-03] MEDS ORDERED: ISOVUE-370 76% 100ML VIAL As Ordered ONE (13:59)
[2022-08-03 14:01] LABS: CK-MB VALUE MASS < 1.0 NG/ML (<3.6); CPK CREATINE PHOSPHOKINASE 33 U/L (26-192); MB/CK RELATIVE INDEX 3.03 (< OR =4)
[2022-08-03] MEDS ORDERED: LORazepam 2 MG/ML VIAL IV STA (16:38)
[2022-08-03] MEDS ORDERED: CYCL5TAB PO (17:39)
[2022-08-03] MEDS ORDERED: PROT1TAB2 PO (17:39)
[2022-08-03 17:45] VITALS: BP 117/69
== END 2022-08-03 17:51 | disposition home or self-care (01) ==
LOC: M ED 12:44
DX: K29.00 Acute gastritis without bleeding (principal); M54.50 Low back pain, unspecified; I87.1 Compression of vein; M51.36 Other intervertebral disc degeneration, lumbar region; Z86.718 Personal history of other venous thrombosis and embolism; Z95.828 Presence of other vascular implants and grafts
CPT/HCPCS: 71045; 71275; 75635; 80047; 80076; 82550; 82553; 83690; 85025; 85610; 93005; 93041; 94760; 96374; 96375; 99285; J2060; J2270; J2405; Q9967

== ENCOUNTER → 2022-09-14 | Outpatient (REF) | payer OTHER ==
[~2022-09-14] MED LIST changes: +CYCL5TAB PO; -DOXY-350 PO; +DOXY-444 PO; +PROT1TAB2 PO
== END ==
LOC: M SFHCWAGY 12:48
PROVIDERS: ATTEND Specialist
DX: Z12.4 Encounter for screening for malignant neoplasm of cervix (principal)

== ENCOUNTER → 2023-03-12 | Outpatient (CLI) | payer OTHER | LOC: M RAD 10:48 | PROVIDERS: ATTEND Surgery | DX: I87.1 Compression of vein (principal) ==

== ENCOUNTER → 2023-04-15 | Outpatient (REF) | payer OTHER ==
[~2023-04-15] MED LIST changes: +PROB250C PO
[2023-04-15 14:17] LABS: HEMATOCRIT 41.6 % (36.0-47.0); HEMOGLOBIN 13.4 g/dl (12.0-15.5); MEAN CORPUSCULAR HEMOGLOBIN 28.5 pg (27.0-33.0); MEAN CORPUSCULAR HGB CONC 32.2 g/dl (32.0-36.5); MEAN CORPUSCULAR VOLUME 88.5 fl (80.0-96.0); PLATELET COUNT, AUTOMATED 406 10^3/uL (150-450)
[2023-04-15 14:24] LABS: HEMOGLOBIN A1c 5.4 % (4.0-6.0)
[2023-04-15 14:47] LABS: ALBUMIN 3.7 G/DL (3.2-5.2); ALKALINE PHOSPHATASE 69 U/L (46-116); ALT/SGPT 18 U/L (7.0-40); AST/SGOT 13 U/L (<34); BILIRUBIN,TOTAL 0.6 MG/DL (0.3-1.2); BLOOD UREA NITROGEN 11 MG/DL (9-23); CALCIUM LEVEL 8.3 MG/DL (8.5-10.1); CARBON DIOXIDE LEVEL 28 MMOL/L (20-31); CHLORIDE LEVEL 106 MMOL/L (98-107); CHOLESTEROL LEVEL 166 MG/DL (<200); CHOLESTEROL RISK RATIO 4.68 (<5); GLOMERULAR FILTRATION RATE > 60.0 (>58); GLUCOSE, FASTING 84 MG/DL (60-100); HDL CHOLESTEROL 35.4 MG/DL (>40); LDL CHOLESTEROL 111.2 MG/DL (<100); NON-HDL-C 130.6 MG/DL; POTASSIUM SERUM 4.9 MMOL/L (3.5-5.1); SODIUM LEVEL 139 MMOL/L (136-145); TOTAL PROTEIN 6.4 G/DL (5.7-8.2); TRIGLYCERIDES LEVEL 97 MG/DL (<150)
[2023-04-15 14:48] LABS: THYROID STIMULATING HORMONE 3.853 uIU/ML (0.55-4.78)
[2023-04-15 14:49] LABS: FREE T4 1.04 NG/DL (0.89-1.76)
== END ==
LOC: M SFHCADAM 09:16
PROVIDERS: ATTEND Physician Assistant
DX: R63.5 Abnormal weight gain (principal); Z13.1 Encounter for screening for diabetes mellitus; R03.0 Elevated blood-pressure reading, without diagnosis of hypertension; E78.5 Hyperlipidemia, unspecified; I82.502 Chronic embolism and thrombosis of unspecified deep veins of left lower extremity

== ENCOUNTER 2023-04-19 06:53 | Day surgery (SDC) | payer OTHER ==
[~2023-04-19] VITALS: Ht 162.6 cm; Wt 93.3 kg
[2023-04-19] MEDS ORDERED: propofoL 200 MG/20 ML VIAL As Ordered ONE (07:35)
[2023-04-19 08:16] VITALS: BP 114/70
== END 2023-04-19 08:25 | disposition home or self-care (01) ==
LOC: M OPP 06:53
PROVIDERS: ATTEND Internal Medicine Gastroenterology
DX: K63.5 Polyp of colon (principal); K52.9 Noninfective gastroenteritis and colitis, unspecified; R10.30 Lower abdominal pain, unspecified; K64.8 Other hemorrhoids; K64.4 Residual hemorrhoidal skin tags; R14.0 Abdominal distension (gaseous)

== ENCOUNTER → 2023-08-26 | Outpatient (CLI) | payer OTHER | LOC: M RAD 08:20 | PROVIDERS: ATTEND Surgery | DX: I87.1 Compression of vein (principal) ==

== ENCOUNTER → 2024-12-12 | Outpatient (REF) | payer OTHER ==
[~2024-12-12] MED LIST changes: -CYCL5TAB PO; +CYCL5TAB4 PO; +DOXY-440 PO; -DOXY-444 PO
[2024-12-12 17:54] LABS: BASO # 0.1 10^3/uL (0.0-0.2); BASO % 0.6 % (0.0-1.0); EOS # 0.3 10^3/uL (0.0-0.5); EOS % 2.4 % (0.0-3.0); HEMOGLOBIN 14.8 g/dl (12.0-15.5); LYMPH # 2.6 10^3/uL (1.5-5.0); LYMPH % 22.2 % (24.0-44.0); MEAN CORPUSCULAR HEMOGLOBIN 28.1 pg (27.0-33.0); MEAN CORPUSCULAR HGB CONC 32.2 g/dl (32.0-36.5); MEAN CORPUSCULAR VOLUME 87.5 fl (80.0-96.0); MONO # 0.7 10^3/uL (0.0-0.8); MONO % 5.9 % (2.0-8.0); NEUTROPHILS # 8.1 10^3/uL (1.5-8.5); NEUTROPHILS % 68.4 % (36.0-66.0); PLATELET COUNT, AUTOMATED 484 10^3/uL (150-450); RED BLOOD COUNT 5.26 10^6/uL (4.00-5.40); WHITE BLOOD COUNT 11.8 10^3/uL (4.0-10.0)
[2024-12-12 18:21] LABS: FREE T4 1.38 NG/DL (0.89-1.76)
[2024-12-12 18:22] LABS: ALBUMIN 4.1 G/DL (3.2-5.2); ALKALINE PHOSPHATASE 75 U/L (35-104); ALT/SGPT 17 U/L (7.0-40); AST/SGOT 11 U/L (<34); BILIRUBIN,TOTAL 0.6 MG/DL (0.3-1.2); BLOOD UREA NITROGEN 11 MG/DL (9-23); CALCIUM LEVEL 9.8 MG/DL (8.5-10.1); CARBON DIOXIDE LEVEL 28 MMOL/L (20-31); CHLORIDE LEVEL 105 MMOL/L (98-107); CHOLESTEROL LEVEL 250 MG/DL (<200); CHOLESTEROL RISK RATIO 4.89 (<5); CREATININE FOR GFR 0.71 MG/DL (0.55-1.30); GLOMERULAR FILTRATION RATE > 60.0 (>58); GLUCOSE, FASTING 76 MG/DL (60-100); HDL CHOLESTEROL 51.1 MG/DL (>40); LDL CHOLESTEROL 176.1 MG/DL (<100); NON-HDL-C 198.9 MG/DL; POTASSIUM SERUM 4.8 MMOL/L (3.5-5.1); SODIUM LEVEL 143 MMOL/L (136-145); TOTAL PROTEIN 7.6 G/DL (5.7-8.2); TRIGLYCERIDES LEVEL 114 MG/DL (<150)
[2024-12-12 18:40] LABS: HEMOGLOBIN A1c 5.3 % (4.0-6.0)
== END ==
LOC: M SFHCADAM 11:49
PROVIDERS: ATTEND Physician Assistant
DX: G43.109 Migraine with aura, not intractable, without status migrainosus (principal); R07.9 Chest pain, unspecified; L30.9 Dermatitis, unspecified; B35.3 Tinea pedis; L60.8 Other nail disorders; Z13.220 Encounter for screening for lipoid disorders; Z28.21 Immunization not carried out because of patient refusal; Z13.1 Encounter for screening for diabetes mellitus

== ENCOUNTER → 2025-05-21 | Outpatient (CLI) | payer OTHER ==
[~2025-05-21] MED LIST changes: -FLOM0.4C39 PO; +TAMS-18 PO
== END ==
LOC: M RAD 14:43
PROVIDERS: ATTEND Surgery
DX: I87.1 Compression of vein (principal); Z95.820 Peripheral vascular angioplasty status with implants and grafts

== ENCOUNTER → 2025-09-04 | Outpatient (REF) | payer OTHER | LOC: M SFHCWAGY 10:10 | PROVIDERS: ATTEND Specialist | DX: Z12.4 Encounter for screening for malignant neoplasm of cervix (principal) ==

== ENCOUNTER → 2025-09-12 | Outpatient (CLI) | payer OTHER | LOC: M WHC 13:47 | PROVIDERS: ATTEND Obstetrics & Gynecology | DX: R92.323 Mammographic fibroglandular density, bilateral breasts (principal); L98.9 Disorder of the skin and subcutaneous tissue, unspecified ==